=== PATIENT | male | born 1965 | race Two or more races ===

== ENCOUNTER 2020-12-30 14:30 | Emergency (ER) | payer MEDICAID, OTHER ==
[~2020-12-30] VITALS: Ht 167.6 cm; Wt 77.1 kg
[2020-12-30] MEDS ORDERED: ACETAMINOPHEN 325 MG TAB PO ONE ×2 (14:45→15:00)
[2020-12-30 15:13] VITALS: BP 105/66
[2020-12-30 15:27] LABS: Urine Bacteria NONE SEEN /hpf (None Seen); Urine Blood Negative /uL (Negative); Urine Specific Gravity 1.027 (1.001-1.035); Urine WBC 2 /hpf (0 - 3)
[2020-12-30] MEDS ORDERED: cefTRIAXone SOD 1,000 MG VL IM ONE (15:45)
== END 2020-12-30 16:18 | disposition home or self-care (01) ==
LOC: ER 14:30
DX: J18.8 Other pneumonia, unspecified organism (principal); Z20.822 Contact with and (suspected) exposure to COVID-19
CPT/HCPCS: 36415; 71045; 81001; 87426; 96372; 99284; C9803; J0696; U0003